=== PATIENT | male | born 2000 | race Caucasian/White ===

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

== ENCOUNTER 2022-03-05 20:29 | Emergency (ER) | payer BC ==
[~2022-03-05] VITALS: Ht 180.3 cm; Wt 77.1 kg
[~2022-03-05 20:29] MED LIST: DIPH25CA83 PO; EPIN0.3P3 IJ; FAMO-131 PO
[2022-03-05 20:34] VITALS: BP 154/90
--- NOTE | 2022-03-05 20:35 | NUR ---
TO ER BED 19.BIBS C/O ALLERGIC REACTION TO PEANUTS, EPIPEN GIVEN 5 MIN PRIOR TO ARRIVAL. PT IS ALERT AND ORIENTED. AMBULATORY WITH STEADY GAIT. BREATHING IS EVEN AND NONLABORED. PT DENIES ANY SOB OR SWELLING IN MOUTH OR THROAT. RASH NOTED ON EXTREMITIES AND NECK. CONNECTED TO MONITOR. AWAITING MD AMARAL
[2022-03-05] MEDS ORDERED: FAMOTIDINE (20 MG) 20 MG TABLET PO ONE (21:00)
[2022-03-05] MEDS ORDERED: predniSONE 10 MG TABLET PO ONE (21:00)
[2022-03-05] MEDS ORDERED: diphenhydrAMINE HCL 50 MG/ML VIAL IV ONE (21:00)
[2022-03-05] MEDS ORDERED: predniSONE 20 MG TABLET ONE (21:06)
[2022-03-05] MEDS ORDERED: diphenhydrAMINE HCL 25 MG CAPSULE ONE (21:06)
[2022-03-05] MEDS ORDERED: FAMOTIDINE (20 MG) 20 MG TABLET ONE (21:06)
[2022-03-05] MEDS ORDERED: PRED50TA PO (21:37)
[2022-03-05] MEDS ORDERED: DIPH50CA4 PO (21:37)
[2022-03-05] MEDS ORDERED: FAMO-131 PO (21:37)
== END 2022-03-05 21:56 | disposition home or self-care (01) ==
LOC: ER 20:30
DX: T78.1XXA Other adverse food reactions, not elsewhere classified, initial encounter (principal); F32.A Depression, unspecified; Z91.010 Allergy to peanuts; Z88.8 Allergy status to other drugs, medicaments and biological substances; Z60.2 Problems related to living alone; Z79.899 Other long term (current) drug therapy; X58.XXXA Exposure to other specified factors, initial encounter
CPT/HCPCS: 99284; Q0163; J7512 ×2